=== PATIENT | male | born 1955 | race Two or more races ===

== ENCOUNTER 2019-04-09 00:56 | Emergency (ER) | payer MEDICAID ==
[~2019-04-09] VITALS: Ht 162.6 cm; Wt 79.2 kg
[2019-04-09 00:58] VITALS: BP 172/91
[2019-04-09 02:01] LABS: BASOPHILS # (AUTO) 0.01 x10^3/uL (0-0.1); BASOPHILS % (AUTO) 0 % (0-1); EOSINOPHILS # (AUTO) 0.07 x10^3/uL (0-0.4); EOSINOPHILS % (AUTO) 1 % (1-7); LYMPHOCYTES # (AUTO) 0.82 x10^3/uL (1-3.4); LYMPHOCYTES % (AUTO) 10 % (22-44); MD NO; MEAN CORPUSCULAR HEMOGLOBIN 30.1 pg (27.5-34.5); MEAN CORPUSCULAR HGB CONC 34.2 g/dL (33.2-36.2); MEAN CORPUSCULAR VOLUME 87.9 fL (81-97); MEAN PLATELET VOLUME 8.8 fL (7.4-10.4); MONOCYTES # (AUTO) 0.54 x10^3/uL (0.2-0.8); MONOCYTES % (AUTO) 7 % (2-9); NEUTROPHILS % (AUTO) 83 % (42-75); PLATELET COUNT 186 x10^3/uL (130-400); RED BLOOD COUNT 5.12 x10^6/uL (4.38-5.82); RED CELL DISTRIBUTION WIDTH 13.9 % (9.4-14.8)
[2019-04-09 02:15] LABS: ALANINE AMINOTRANSFERASE 20 U/L (12-78); ALBUMIN 3.3 g/dL (3.4-5.0); ANION GAP 8 mmol/L (5-15); CALCIUM 8.3 mg/dL (8.5-10.1); CHLORIDE 102 mmol/L (98-107); CREATININE 1.02 mg/dL (0.7-1.3)
[2019-04-09 02:20] LABS: ALKALINE PHOSPHATASE 87 U/L (45-117); BILIRUBIN,TOTAL 0.6 mg/dL (0.2-1.0); TOTAL PROTEIN 7.8 g/dL (6.4-8.2); TROPONIN I < 0.015 ng/mL (0.000-0.045)
== END 2019-04-09 02:41 | disposition home or self-care (01) ==
LOC: ED 02:37
DX: J20.9 Acute bronchitis, unspecified (principal); F17.210 Nicotine dependence, cigarettes, uncomplicated; I10 Essential (primary) hypertension; G89.29 Other chronic pain; Z86.73 Personal history of transient ischemic attack (TIA), and cerebral infarction without residual deficits
CPT/HCPCS: 36415; 71046; 80053; 83880; 84484; 85025; 93005; 99284; 99406

== ENCOUNTER 2020-08-18 15:59 | Emergency (ER) | payer SELFPAY ==
[~2020-08-18] VITALS: Ht 162.6 cm; Wt 76.1 kg
[2020-08-18 16:02] VITALS: BP 148/89
--- NOTE | 2020-08-18 16:11 | NUR ---
PT AMBULATORY FROM TRIAGE TO ROOM. TOOK LAST BENAZEPRIL 20MG ON 08/17. IS OUT OF MEDICATION AND REQUESTING REFILL.
[2020-08-18] MEDS ORDERED: GABA-827 PO (16:26)
[2020-08-18] MEDS ORDERED: OXYCODONE PO (16:26)
[2020-08-18] MEDS ORDERED: BENA20TA54 PO (16:26)
[2020-08-18] MEDS ORDERED: MORP30TA81 PO (16:26)
[2020-08-18] MEDS ORDERED: OXYC15TA60 PO (16:26)
--- NOTE | 2020-08-18 16:32 | NUR ---
Patient/Caregiver given discharge instructions and they have confirmed that they understand the instructions. Patient ambulatory with steady gait. NAD, all questions answered appropriately, denies additional needs at this time. No personal belongings left in room after discharge.
== END 2020-08-18 16:32 | disposition home or self-care (01) ==
LOC: ED 16:18
DX: I10 Essential (primary) hypertension (principal); Z76.0 Encounter for issue of repeat prescription; Z86.73 Personal history of transient ischemic attack (TIA), and cerebral infarction without residual deficits; Z88.5 Allergy status to narcotic agent
CPT/HCPCS: 99283